=== PATIENT | female | born 1970 | race Caucasian/White ===

== ENCOUNTER 2019-03-14 18:32 | Emergency (ER) | payer SELFPAY ==
[~2019-03-14] VITALS: Ht 170.2 cm; Wt 91.2 kg
[2019-03-14 18:32] VITALS: BP 0/0
--- NOTE | 2019-03-14 18:32 | NUR ---
182---Patient BIBVladislav ACLS accompanied by FD with CPR in progress, transferred to bed 10. CPR continued by [facility] staff. Dr. Lincoln evaluating patient at bedside.
--- NOTE | 2019-03-14 18:32 | NUR ---
WE ARE CALLED TO ER FOR FULL AREST IN BED 10, CPR DONE, PT WAS INTUBATED ON THE FIELD.PT , PRONUNCE BY DR TEJEDA
--- NOTE | 2019-03-14 18:33 | NUR ---
PT BIBA AND [place] FIRE, CALL RECEIVED FROM [facility], PT FOUND BY DAUGHTER AT HOME FACE DOWN IN BATH TUB, WATER FILLED TO CATCH AND PATIENT HEAD SUBMERGED IN WATER. DAUGHTER DRAINED THE TUB. WHEN EMS ARRIVED ON SCENE PATIENT WAS HEAD DOWN IN BATH TUB, TUB WAS EMPTY AND WATER WAS RUNNING DOWN PATIENT FROM SHOWER. PT WAS LAST SEEN NORMAL BY DAUGHTER AROUND 1400 TODAY. PER EMS UPON ARRIVAL PT WAS ASYSTOLE, CPR INITIATED. IO IN PLACE TO LEFT LEG, 3 ROUNDS OF EPI DOMESTIC VIOLENCE ADVOCATE, INTUBATED DOMESTIC VIOLENCE ADVOCATE. PT ARRIVED CPR CONTINUED. PT ARRIVED ON BACKBOARD. ALS CONTINUED.
--- NOTE | 2019-03-14 18:50 | NUR ---
TIME OF AT [address] TEJEDA.
--- NOTE | 2019-03-14 18:50 | NUR ---
PT WAS DECLARED BY DR. JEWELS TEJEDA AT 1850.
--- NOTE | 2019-03-14 19:05 | NUR ---
CALL MADE TO HEALTH EDUCATION TEACHER, WAITING FOR CALL BACK FROM DEPUTY TO REPORT.
--- NOTE | 2019-03-14 19:15 | NUR ---
CALLED MADE TO [facility], SPOKE WITH LEXI GOYAL. REFERENCE # [id number]
--- NOTE | 2019-03-14 19:58 | NUR ---
SPOKE WITH CREDIT REPORTER NICKI, CASE # [id number]. CREDIT REPORTER SPEAKING WITH OFFICER YARIEL WHO IS AT BEDSIDE. CREDIT REPORTER WILL BE EN ROUTE TO FACILITY. NO FAMILY ALLOWED TO VISIT WITH PATIENT AT THIS TIME PER CREDIT REPORTER.
--- NOTE | 2019-03-14 20:01 | NUR ---
NEXT OF KIN: ARTEM VILLEGAS [phone]
--- NOTE | 2019-03-14 21:14 | NUR ---
CONTACT CENTER SPECIALIST ARRIVED AND IS AT BEDSIDE.
--- NOTE | 2019-03-14 23:10 | NUR ---
0697--- WET PROCESS HEAD MILLER BEDSIDE TRANSPORTED PT TO FACILITY
== END 2019-03-14 18:50 | disposition expired ==
LOC: MED 18:32
DX: I46.9 Cardiac arrest, cause unspecified (principal); F10.129 Alcohol abuse with intoxication, unspecified
CPT/HCPCS: 92950; 99285